=== PATIENT | female | born 1945 | race Caucasian/White ===

== ENCOUNTER 2023-12-06 15:14 | Emergency (ER) | payer BC, MEDICAID ==
[~2023-12-06] VITALS: Ht 160 cm; Wt 65.3 kg
[2023-12-06 15:40] VITALS: BP 140/62; PULSE 74; RESP 18; TEMP 97.6; O2SAT 98
[2023-12-06] MEDS: ASPIRIN 325 MG TAB PO ONE (16:53)
[2023-12-06] MEDS: ALUMINUM HYD/MAG/SIMETHICONE 30 ML UDC PO ONE (16:53)
[2023-12-06] MEDS: FAMOTIDINE 20 MG TAB PO ONE (16:54)
[2023-12-06 17:00] LABS: BASOPHILS # (AUTO) 0.1 K/uL (0.00-0.22); BASOPHILS % (AUTO) 1.2 % (0.0-2.0); EOSINOPHILS # (AUTO) 0.1 K/uL (0-0.4); EOSINOPHILS % (AUTO) 1.8 % (0.0-4.0); HEMATOCRIT 31.7 % (36-48); HEMOGLOBIN 10.7 g/dL (12.0-16.0); LYMPHOCYTES # (AUTO) 1.6 K/uL (2.5-16.5); LYMPHOCYTES % (AUTO) 23.1 % (20.5-51.1); MEAN CORPUSCULAR HEMOGLOBIN 33 pg (27-31); MEAN CORPUSCULAR HGB CONC 34 g/dL (33-37); MEAN CORPUSCULAR VOLUME 95.9 fL (80-94); MONOCYTES # (AUTO) 0.4 K/uL (0.8-1.0); MONOCYTES % (AUTO) 6.2 % (1.7-9.3); NEUTROPHILS # (AUTO) 4.6 K/uL (1.8-7.7); NEUTROPHILS % (AUTO) 67.7 % (42.2-75.2); PLATELET COUNT (AUTO) 194 K/uL (140-450); RED CELL DISTRIBUTION WIDTH 13.5 % (11.6-13.7); WHITE BLOOD COUNT (AUTO) 6.8 K/uL (4.8-10.8)
[2023-12-06 17:25] LABS: ANION GAP 14.6 (8-16); CALCIUM 7.5 mg/dL (8.5-10.1); CARBON DIOXIDE 20.2 mmol/L (21-32); CHLORIDE 111 mmol/L (98-107); CREATININE 3.4 mg/dL (0.6-1.3); GLUCOSE 148 mg/dL (74-106); POTASSIUM 4.8 mmol/L (3.5-5.1); SODIUM SERUM 141 mmol/L (136-145); UREA NITROGEN, BLOOD 46 mg/dL (7-18)
[2023-12-06 17:31] LABS: ALANINE AMINOTRANSFERASE 20 U/L (12-78); ALKALINE PHOSPHATASE 136 U/L (50-136); ASPARTATE AMINOTRANSFERASE 38 U/L (15-37); LIPASE 37 U/L (16-77); TOTAL BILIRUBIN 0.2 mg/dL (0.0-1.0); TOTAL PROTEIN, SERUM 6.6 g/dL (6.4-8.2)
[2023-12-06] MEDS ORDERED: HEPARIN PER PHARMACY MC PRN (17:40)
[2023-12-06 18:39] VITALS: O2SAT 98
[2023-12-06 19:39] VITALS: O2SAT 98
[2023-12-06 20:38] LABS: INR 1.11 (0.8-1.2); PROTHROMBIN TIME 11.5 secs (10.8-13.4)
[2023-12-06 20:41] LABS: PARTIAL THROMBOPLASTIN TIME 73.1 secs (22-35.6)
[2023-12-06 21:39] VITALS: O2SAT 98
[2023-12-06] MEDS ORDERED: hePARIN / DEXT 5% PREMIX 250 ML IV ONE (22:15)
[2023-12-06] MEDS: hePARIN / DEXT 5% PREMIX 250 ML IV SCH (22:33)
[2023-12-07 00:04] VITALS: O2SAT 97
[2023-12-07 02:15] VITALS: O2SAT 98
[2023-12-07 02:29] VITALS: BP 149/62; PULSE 61; RESP 21; TEMP 97.8; O2SAT 97
== END 2023-12-07 02:31 | disposition short-term general hospital (02) ==
LOC: MED 15:14
DX: I21.4 Non-ST elevation (NSTEMI) myocardial infarction (principal); D64.9 Anemia, unspecified; N28.9 Disorder of kidney and ureter, unspecified; Z20.822 Contact with and (suspected) exposure to COVID-19; R91.8 Other nonspecific abnormal finding of lung field; J90 Pleural effusion, not elsewhere classified; E11.9 Type 2 diabetes mellitus without complications; I10 Essential (primary) hypertension; Z90.49 Acquired absence of other specified parts of digestive tract; Z98.890 Other specified postprocedural states
CPT/HCPCS: 36415; 71045; 80048; 80076; 82948; 83690; 83880; 84484; 85025; 85610; 85730; 87426; 87635; 93005; 96365; 96366; 96376; 99291; 99292; J1644; 99285